=== PATIENT | female | born 1960 | race Asian ===

== ENCOUNTER 2018-11-15 10:38 | Outpatient (CLI) | payer BC ==
--- NOTE | 2018-11-15 10:59 | RAD ---
EXAM: Chest 2 views: HISTORY: Rheumatoid arthritis COMPARISON: None. FINDINGS: There is a normal-sized cardiomediastinal silhouette. There is no evidence of consolidation, mass, or pleural effusion. The bones are unremarkable. IMPRESSION: No evidence of acute cardiopulmonary disease
== END 2018-11-15 10:39 | disposition home or self-care (01) ==
LOC: SCSRAD 10:38
PROVIDERS: ATTEND Internal Medicine Rheumatology
DX: M05.79 Rheumatoid arthritis with rheumatoid factor of multiple sites without organ or systems involvement (principal)
CPT/HCPCS: 71046

== ENCOUNTER 2020-04-13 15:09 | Outpatient (CLI) | payer BC ==
--- NOTE | 2020-04-13 16:08 | MMO ---
Bilateral MAMMO Bilat Screen [facility]. CLINICAL HISTORY: Patient is 59 years old and is seen for screening. The patient has no family history of breast cancer. The patient has no personal history of cancer. VIEWS: The views performed were: bilateral craniocaudal with tomosynthesis and bilateral mediolateral oblique with tomosynthesis. FILMS COMPARED: The present examination has been compared to prior imaging studies performed at [facility] on 11/22/2010, 10/10/2012, 10/11/2013 and 04/03/2017. This study has been interpreted with the assistance of computer-aided detection. MAMMOGRAM FINDINGS: There are scattered fibroglandular densities. Irregular shaped mass density upper mid left breast best seen with tomosynthesis. In the right breast, there are no suspicious masses, calcifications or areas of architectural distortion. IMPRESSION: FINDING IN THE LEFT BREAST REQUIRES ADDITIONAL EVALUATION. ADDITIONAL IMAGING. THE RESULTS OF THIS EXAM WERE SENT TO THE PATIENT. ACR BI-RADS Category 0 - Incomplete: Need additional imaging evaluation. [facility] will notify the patient of the need for additional imaging services. MAMMOGRAPHY NOTE: 1. A negative mammogram report should not delay a biopsy if a dominant of clinically suspicious mass is present. 2. Approximately 10% to 15% of breast cancers are not detected by mammography. 3. Adenosis and dense breasts may obscure an underlying neoplasm. Reported by: TEODORA AVINA MD Electonically Signed: [id number]
== END 2020-04-13 15:10 | disposition home or self-care (01) ==
LOC: BICMAMMO 15:09
PROVIDERS: ATTEND Internal Medicine
DX: Z12.31 Encounter for screening mammogram for malignant neoplasm of breast (principal)
CPT/HCPCS: 77063; 77067

== ENCOUNTER 2020-04-21 14:17 | Outpatient (CLI) | payer BC ==
--- NOTE | 2020-04-21 15:07 | ULT ---
ULTRASOUND LEFT BREAST: 04/21/20 INICATIONS: Ultrasound upper mid left breast performed to assess an area of asymmetric density seen on mammograph y. FINDINGS: At 12 o'clock 6 cm from nipple there is an oblong shaped hypoechoic area which appears to represent a cluster of small cysts by ultrasound. There are internal septations possibly representing a complex cyst. No shadowing or suspicious abnormality. The lesion appears predominantly cystic by ultrasound. Recommend follow-up left breast ultrasound in six months to confirm stability. IMPRESSION: BIRADS 3: Probably Benign Finding Initial Short-Interval Follow-Up Suggested Initial short-term follow up (usually 6-month) examination POS: OFF
--- NOTE | 2020-04-21 15:07 | MMO ---
Left Breast MAMMO Unilat Diag [facility]. CLINICAL HISTORY: Patient is 59 years old and is seen for diagnostic exam. The patient has no family history of breast cancer. The patient has no personal history of cancer. VIEWS: The views performed were: left craniocaudal spot compression with tomosynthesis; left mediolateral oblique spot compression with tomosynthesis; and left mediolateral with tomosynthesis. FILMS COMPARED: The present examination has been compared to prior imaging studies performed at [facility] on 10/11/2013, 04/03/2017, 04/13/2020 and 04/21/2020. This study has been interpreted with the assistance of computer-aided detection. MAMMOGRAM FINDINGS: There are scattered fibroglandular densities. [place] shaped nodular density persists on diagnostic exam. Ultrasound reveals a cluster of cysts at 12 oclock which would correspond. See ultrasound report. IMPRESSION: FINDING IN THE LEFT BREAST IS PROBABLY BENIGN. FOLLOW-UP ULTRASOUND IN 6 MONTHS IS RECOMMENDED. THE RESULTS OF THIS EXAM WERE SENT TO THE PATIENT. ACR BI-RADS Category 3 - Probably benign finding - short interval follow-up suggested. [facility] will notify the patient of the need for additional imaging services. MAMMOGRAPHY NOTE: 1. A negative mammogram report should not delay a biopsy if a dominant of clinically suspicious mass is present. 2. Approximately 10% to 15% of breast cancers are not detected by mammography. 3. Adenosis and dense breasts may obscure an underlying neoplasm. Reported by: TEODORA AVINA MD Electonically Signed: [id number]
== END 2020-04-21 14:18 | disposition home or self-care (01) ==
LOC: BICMAMMO 14:17
PROVIDERS: ATTEND Internal Medicine
DX: R92.2 Inconclusive mammogram (principal); N63.20 Unspecified lump in the left breast, unspecified quadrant
CPT/HCPCS: G0279

== ENCOUNTER 2020-07-14 12:00 | Outpatient (CLI) | payer BC ==
--- NOTE | 2020-07-14 12:15 | RAD ---
XR Chest Pa Lat STANDARD History: Rheumatoid arthritis Comparison: Radiograph 2019 Findings: Lungs are clear. No pneumothorax or effusion. Cardiac silhouette and mediastinal contours a re within normal limits. No acute osseous abnormality. Impression: No acute intrathoracic abnormality.
== END 2020-07-14 12:01 | disposition home or self-care (01) ==
LOC: BICRAD 12:00
PROVIDERS: ATTEND Internal Medicine Rheumatology
DX: M05.79 Rheumatoid arthritis with rheumatoid factor of multiple sites without organ or systems involvement (principal); Z92.29 Personal history of other drug therapy
CPT/HCPCS: 71046

== ENCOUNTER 2020-10-22 15:06 | Outpatient (CLI) | payer BC | END 2020-10-22 15:07 | disposition home or self-care (01) | LOC: BICULT 15:06 | PROVIDERS: ATTEND Internal Medicine | DX: R92.2 Inconclusive mammogram (principal); N60.12 Diffuse cystic mastopathy of left breast ==

== ENCOUNTER 2020-12-19 16:14 | Outpatient (CLI) | payer BC | END 2020-12-19 16:15 | disposition home or self-care (01) | LOC: SCSRAD 16:14 | PROVIDERS: ATTEND Internal Medicine Rheumatology | DX: M54.5 Low back pain (principal); M47.816 Spondylosis without myelopathy or radiculopathy, lumbar region | CPT/HCPCS: 72100 ==

== ENCOUNTER 2020-12-24 13:25 | Outpatient (CLI) | payer BC | END 2020-12-24 13:26 | disposition home or self-care (01) | LOC: BICMAMMO 13:25 | PROVIDERS: ATTEND Internal Medicine Rheumatology | DX: M81.0 Age-related osteoporosis without current pathological fracture (principal) | CPT/HCPCS: 77080 ==

== ENCOUNTER 2021-03-16 11:35 | Outpatient (CLI) | payer BC | END 2021-03-16 11:36 | disposition home or self-care (01) | LOC: SCSRAD 11:35 | PROVIDERS: ATTEND Internal Medicine Rheumatology | DX: M25.562 Pain in left knee (principal); M17.12 Unilateral primary osteoarthritis, left knee ==

== ENCOUNTER 2021-03-22 13:01 | Outpatient (CLI) | payer BC | END 2021-03-22 13:02 | disposition home or self-care (01) | LOC: SCSRAD 13:01 | PROVIDERS: ATTEND Internal Medicine Rheumatology | DX: M25.561 Pain in right knee (principal) ==

== ENCOUNTER 2021-03-25 10:23 | Outpatient (CLI) | payer BC | END 2021-03-25 10:24 | disposition home or self-care (01) | LOC: CTENTCT 10:23 | PROVIDERS: ATTEND Student in an Organized Health Care Education/Training Program | DX: J34.2 Deviated nasal septum (principal) | CPT/HCPCS: 70486 ==

== ENCOUNTER 2021-05-06 16:06 | Outpatient (CLI) | payer BC | END 2021-05-06 16:07 | disposition home or self-care (01) | LOC: SCSRAD 16:06 | PROVIDERS: ATTEND Internal Medicine Rheumatology | DX: M25.521 Pain in right elbow (principal) ==

== ENCOUNTER 2021-05-07 08:49 | Outpatient (CLI) | payer BC | END 2021-05-07 08:50 | disposition home or self-care (01) | LOC: BICMAMMO 08:49 | PROVIDERS: ATTEND Internal Medicine | DX: R92.8 Other abnormal and inconclusive findings on diagnostic imaging of breast (principal); R92.2 Inconclusive mammogram | CPT/HCPCS: 77066; G0279 ==

== ENCOUNTER 2021-11-02 15:36 | Outpatient (CLI) | payer BC | END 2021-11-02 15:37 | disposition home or self-care (01) | LOC: SCSRAD 15:36 | PROVIDERS: ATTEND Physician Assistant | DX: M25.531 Pain in right wrist (principal) ==

== ENCOUNTER 2021-12-29 12:41 | Outpatient (CLI) | payer BC | END 2021-12-29 12:42 | disposition home or self-care (01) | LOC: SCSRAD 12:41 | PROVIDERS: ATTEND Family Medicine | DX: R05.9 Cough, unspecified (principal) | CPT/HCPCS: 71046 ==

== ENCOUNTER 2022-03-02 09:27 | Outpatient (CLI) | payer BC | END 2022-03-02 09:28 | disposition home or self-care (01) | LOC: BICRAD 09:27 → SCSRAD 09:28 | PROVIDERS: ATTEND Family Medicine | DX: M25.562 Pain in left knee (principal) ==

== ENCOUNTER 2022-03-10 13:25 | Outpatient (CLI) | payer BC | END 2022-03-10 13:26 | disposition home or self-care (01) | LOC: RAD 13:25 | PROVIDERS: ATTEND Family Medicine | DX: I69.891 Dysphagia following other cerebrovascular disease (principal); R13.12 Dysphagia, oropharyngeal phase; K21.9 Gastro-esophageal reflux disease without esophagitis | CPT/HCPCS: 74230 ==

== ENCOUNTER 2022-04-26 12:59 | Outpatient (CLI) | payer BC | END 2022-04-26 13:00 | disposition home or self-care (01) | LOC: SCSRAD 12:59 | PROVIDERS: ATTEND Internal Medicine Rheumatology | DX: M25.511 Pain in right shoulder (principal) ==

== ENCOUNTER 2022-10-12 14:58 | Outpatient (CLI) | payer BC | END 2022-10-12 14:59 | disposition home or self-care (01) | LOC: SCSRAD 14:58 | PROVIDERS: ATTEND Internal Medicine Rheumatology | DX: M05.79 Rheumatoid arthritis with rheumatoid factor of multiple sites without organ or systems involvement (principal); M54.6 Pain in thoracic spine; R07.81 Pleurodynia; M47.814 Spondylosis without myelopathy or radiculopathy, thoracic region | CPT/HCPCS: 71046; 72072 ==

== ENCOUNTER 2022-11-11 14:53 | Outpatient (CLI) | payer BC | END 2022-11-11 14:54 | disposition home or self-care (01) | LOC: SCSRAD 14:53 | PROVIDERS: ATTEND Family Medicine | DX: M79.671 Pain in right foot (principal); M79.672 Pain in left foot ==

== ENCOUNTER 2023-05-29 14:45 | Outpatient (CLI) | payer BC | END 2023-05-29 14:46 | disposition home or self-care (01) | LOC: BICMAMMO 14:45 | PROVIDERS: ATTEND Family Medicine | DX: Z12.31 Encounter for screening mammogram for malignant neoplasm of breast (principal) | CPT/HCPCS: 77063; 77067 ==

== ENCOUNTER 2023-08-07 14:28 | Outpatient (CLI) | payer BC | END 2023-08-07 14:29 | disposition home or self-care (01) | LOC: SCSRAD 14:28 | PROVIDERS: ATTEND Internal Medicine Rheumatology | DX: M75.101 Unspecified rotator cuff tear or rupture of right shoulder, not specified as traumatic (principal); M75.102 Unspecified rotator cuff tear or rupture of left shoulder, not specified as traumatic; M19.011 Primary osteoarthritis, right shoulder; M19.012 Primary osteoarthritis, left shoulder ==

== ENCOUNTER 2024-12-31 13:02 | Outpatient (CLI) | payer BC | END 2024-12-31 13:03 | disposition home or self-care (01) | LOC: BICMAMMO 13:02 | PROVIDERS: ATTEND Family Medicine | DX: N95.9 Unspecified menopausal and perimenopausal disorder (principal); M17.0 Bilateral primary osteoarthritis of knee | CPT/HCPCS: 73565; 77080 ==